=== PATIENT | female | born 1985 | race Caucasian/White ===

== ENCOUNTER 2022-01-20 11:05 | Inpatient (IN) ==
[2022-01-20] MEDS ORDERED: DINOPROSTONE 10 MG INSERT PV ONE (22:54)
[2022-01-20] MEDS ORDERED: OXYTOCIN 30 UNITS/500 ML BAG IV PRN (22:54)
[2022-01-20 23:16] LABS: Hematocrit (blood only) 36.5 % (37-47); Hemoglobin 13.2 g/dL (12.0-16.0); Mean Corpuscular Hgb Conc 36.2 g/dL (32-36); Mean Corpuscular Volume 91.3 fL (80-100); Mean Platelet Volume 10.8 fL (7.4-10.4); Platelet Count 200 K/uL (130-400); RDW Coefficient of Variation 12.9 % (11.5-14.5); RDW Standard Deviation 43.2 fL (36.4-46.3); White Blood Count 14.45 K/uL (4.8-10.8)
--- NOTE | 2022-01-21 02:53 | Obstetrical Progress Note ---
Date of Service January 21, 2022 Assessment & Plan (1) IUGR (intrauterine growth restriction): Plan: Induction for severe IUGR FHR; CAT1 Ctx; Mild and irregular VE; 1-2/50/-3 Plan Cervidil Admission and Anticipated Discharge Date Admission Date: January 20, 2022 Results & Data ([facility]) Vital Signs (Past 12 Hours) Vital Signs Temp Pulse Resp BP 01/21/22 02:19 36.5 C 57 L 18 118/73 01/20/22 22:15 36.6 C 77 16 137/85
[2022-01-21] MEDS ORDERED: miSOPROStoL 50 MCG TAB PO ONE (04:24)
--- NOTE | 2022-01-21 09:11 | Obstetrical Progress Note ---
Date of Service January 21, 2022 Physical Exam Genitourinary Manual OB Exam: + cervical dilation fingertip, + cervical effacement 50% and + station high OB Exam Monitor Tracing: + external FHT monitor used, + external uterine monitor used, + category I and + normal FHT variability Results & Data ([facility]) Vital Signs (Past 12 Hours) Vital Signs Temp Pulse Resp BP 01/21/22 08:30 20 01/21/22 07:30 36.6 C 20 01/21/22 07:25 58 L 132/61 01/21/22 02:19 36.5 C 57 L 18 118/73 01/20/22 22:15 36.6 C 77 16 137/85
[2022-01-21] MEDS: LACTATED RINGER'S 1,000 ML IV PRN (09:14)
[2022-01-21] MEDS ORDERED: Nursing to Pharmacy Communication SCH (10:45)
[2022-01-21] MEDS: miSOPROStoL 50 MCG TAB PO SCH ×3 (10:55→20:11)
[2022-01-21] MEDS ORDERED: miSOPROStoL 50 MCG TAB PO SCH (12:00)
[2022-01-22] MEDS: miSOPROStoL 50 MCG TAB PO SCH ×2 (02:44→11:45)
[2022-01-22] MEDS ORDERED: OXYTOCIN 30 UNITS/500 ML BAG IV PRN (07:20)
[2022-01-22 08:26] LABS: Basophils # (auto) 0.02 K/uL (0-0.2); Basophils % (auto) 0.1 %; Eosinophils % (auto) 0.7 %; Hematocrit (blood only) 35.1 % (37-47); Hemoglobin 12.5 g/dL (12.0-16.0); Immature Granulocytes # (auto) 0.08 K/uL (0.00-0.02); Immature Granulocytes % (auto) 0.6 %; Lymphocytes # (auto) 2.03 K/uL (1.2-3.4); Lymphocytes % (auto) 15.2 %; Mean Corpuscular Hemoglobin 32.7 pg (25-34); Mean Corpuscular Hgb Conc 35.6 g/dL (32-36); Mean Corpuscular Volume 91.9 fL (80-100); Mean Platelet Volume 10.9 fL (7.4-10.4); Monocytes % (auto) 8.2 %; Neutrophils # (auto) 10.06 K/uL (1.4-6.5); Neutrophils % (auto) 75.2 %; Platelet Count 183 K/uL (130-400); RDW Coefficient of Variation 12.9 % (11.5-14.5); RDW Standard Deviation 43.5 fL (36.4-46.3); Red Blood Count 3.82 M/uL (4.2-5.4); White Blood Count 13.39 K/uL (4.8-10.8)
--- NOTE | 2022-01-22 08:49 | History & Physical Report ---
Date of Service January 22, 2022 Assessment & Plan (1) IUGR (intrauterine growth restriction): Plan: 36-year-old -0-1-0 at 37 weeks and 5 days of gestation admitted on January 20 for IUGR, induction of labor recommended by [facility], Vital signs stable afebrile, Heart rate reassuring, GBS positive, S/p prostaglandin cervical ripening with no response, Discussed other options as intravaginal Cervidil or Henning balloon mechanical dilatation with oxytocin, After discussion decided for Henning balloon and low-dose oxytocin per protocol And to start penicillin for GBS, breakfast and then speculum exam for further balloon insertion, All questions were answered. (2) Tobacco smoking affecting : Admission and Anticipated Discharge Date Admission Date: January 20, 2022 History of Present Illness Primary Care Provider: Isauro Bolivar MD Patient is a 36-year-old -0-1-0 at 37 weeks and 1 day gestation who was admitted on January 20 for induction recommended by [facility] due to IUGR. Patient has received 6 doses of p.o. Cytotec but has not went into labor yet. She feels irregular mild contractions, denies leakage of fluid or vaginal bleeding. She reports good movements. Her has been complicated by, 1. Smoker, smokes half pack of cigarettes per day, 2. AMA, she had NIPT which had low risk and ultrasounds by [facility] 3. 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 Review of Systems as per Subjective / HPI Physical Exam Constitutional: WD/WN, vitals as above well developed and well nourished Comfortable , not in any distress Genitourinary: normal external appearance OB Exam Abdomen: + vertex Manual OB Exam: + cervical dilation fingertip, + cervical effacement 50% and + station -2 OB Exam Monitor Tracing: + external uterine monitor used and + category I Results & Data ([facility]) Vital Signs (Past 12 Hours) Vital Signs Temp Pulse Resp BP 01/22/22 06:23 56 L 122/64 01/22/22 06:22 36.7 C 16 01/22/22 02:20 53 L 124/61 01/21/22 23:56 54 L 123/74 01/21/22 23:55 36.6 C 18 01/21/22 22:12 58 L 123/66 01/21/22 22:10 36.4 C L 20 Laboratory Results Lab Results 01/20/22 01/21/22 01/22/22 Range/Units 23:02 07:53 08:04 WBC 14.45 H 13.39 H (4.8-10.8) K/uL RBC 4.00 L 3.82 L (4.2-5.4) M/uL Hgb 13.2 12.5 (12.0-16.0) g/dL Hct 36.5 L 35.1 L (37-47) % MCV 91.3 91.9 (80-100) fL MCH 33.0 32.7 (25-34) pg MCHC 36.2 H 35.6 (32-36) g/dL RDW Std Deviation 43.2 43.5 (36.4-46.3) fL RDW Coeff of Bi 12.9 12.9 (11.5-14.5) % Plt Count 200 183 (130-400) K/uL MPV 10.8 H 10.9 H (7.4-10.4) fL Immature Gran % (Auto) 0.6 % Neut % (Auto) 75.2 % Lymph % (Auto) 15.2 % [place] % (Auto) 8.2 % Eos % (Auto) 0.7 % Baso % (Auto) 0.1 % Neut # (Auto) 10.06 H (1.4-6.5) K/uL Lymph # (Auto) 2.03 (1.2-3.4) K/uL [place] # (Auto) 1.10 H (0.11-0.59) K/uL Eos # (Auto) 0.10 (0-0.5) K/uL Baso # (Auto) 0.02 (0-0.2) K/uL Immature Gran # (Auto) 0.08 H (0.00-0.02) K/uL SARS-CoV-2, RNA, NAAT NEGATIVE (NEGATIVE) Code Status & VTE Plan VTE Prophylaxis Plan VTE Prophylaxis will be ordered: No
[2022-01-22] MEDS ORDERED: BUTORPHANOL TARTRATE 1 MG/ML VIAL IV PRN (09:12)
[2022-01-22] MEDS ORDERED: FLUCONAZOLE 50 MG TAB PO ONE (09:13)
[2022-01-22] MEDS ORDERED: PENICILLIN G POTASSIUM 6 MU in DEXTROSE 5% 250 ML IV ONE (09:15)
--- NOTE | 2022-01-22 09:26 | Obstetrical Progress Note ---
Date of Service January 22, 2022 Assessment & Plan Admission and Anticipated Discharge Date Admission Date: January 20, 2022 Subjective Speculum was placed in the vagina, cervix is visualized and cleaned with Betadin e x2. Henning catheter tip was inserted into the cervical os and its balloon was inflated with 35 mL of sterile water. Mild traction was applied and attached to her medial upper thigh. Patient tolerated the procedure well. heart rate was category 1. Plan to augment contractions with low-dose Pitocin and continue to monitor. Results & Data ([facility]) Vital Signs (Past 12 Hours) Vital Signs Temp Pulse Resp BP 01/22/22 06:23 56 L 122/64 01/22/22 06:22 36.7 C 16 01/22/22 02:20 53 L 124/61 01/21/22 23:56 54 L 123/74 01/21/22 23:55 36.6 C 18 01/21/22 22:12 58 L 123/66 01/21/22 22:10 36.4 C L 20
[2022-01-22] MEDS ORDERED: PENICILLIN G POTASSIUM 3 MU in DEXTROSE 5% 100 ML IV ONE (13:00)
[2022-01-22] MEDS: LACTATED RINGER'S 1,000 ML IV PRN ×2 (13:33→22:06)
[2022-01-22] MEDS ORDERED: ePHEDrine sulfate 50 MG/ML AMP ONE (15:51)
[2022-01-22] MEDS ORDERED: fentaNYL citrate 100 MCG/2 ML VIAL ONE (15:51)
[2022-01-22] MEDS ORDERED: BUPIVACAINE 0.25% 30 ML VIAL ONE (15:51)
[2022-01-22] MEDS ORDERED: SODIUM CHLORIDE 0.9% INJ 10 ML VIAL ONE (15:51)
[2022-01-22] MEDS ORDERED: fentaNYL 2MCG/ML ROPIVACAINE 1.25MG/ML 100 ML BAG EPI ONE (15:52)
--- NOTE | 2022-01-22 15:53 | Obstetrical Progress Note ---
Date of Service January 22, 2022 Assessment & Plan Admission and Anticipated Discharge Date Admission Date: January 20, 2022 Subjective Patient is reevaluated. Patient felt urge to urinate, the Henning balloon was fou nd to be in the vagina and removed and she leaked urine? Amniotic fluid? She used Bactrim and emptied 1000 mL of urine mixed with amniotic fluid, Vaginal exam is repeated, cervix is 4 cm dilated, 40% effaced, head at -2 station well applied to the cervix, no amniotic membranes were felt, nitrazine is positive on perineum. heart rate reassuring, Pitocin is at 8 mIU/min, She is more painful now and desires epidural for pain. Plan to continue to monitor closely and epidural for pain. Results & Data ([facility]) Vital Signs (Past 12 Hours) Vital Signs Temp Pulse Resp BP Pulse Ox 01/22/22 15:29 72 99 01/22/22 15:24 61 99 01/22/22 15:19 54 L 98 01/22/22 15:14 55 L 98 01/22/22 15:09 57 L 97 01/22/22 15:04 56 L 98 01/22/22 14:59 53 L 97 01/22/22 14:54 60 99 01/22/22 14:49 54 L 97 01/22/22 14:44 53 L 97 01/22/22 14:39 51 L 98 01/22/22 14:34 50 L 97 01/22/22 14:33 50 L 111/60 01/22/22 14:29 51 L 97 01/22/22 14:24 55 L 98 01/22/22 14:19 52 L 98 01/22/22 14:14 52 L 100 01/22/22 14:09 63 100 01/22/22 14:08 63 122/68 01/22/22 13:35 50 L 140/75 01/22/22 12:32 52 L 151/82 H 01/22/22 10:16 54 L 149/75 H 01/22/22 09:41 56 L 129/72 01/22/22 06:23 56 L 122/64 01/22/22 06:22 36.7 C 16
[2022-01-22] MEDS ORDERED: NALOXONE HCL 1 MG in SODIUM CHLORIDE 0.9% 1000ML 1,000 ML IV PRN (16:18)
[2022-01-22] MEDS ORDERED: ePHEDrine sulfate 50 MG/ML AMP IV PRN (16:18)
[2022-01-22] MEDS ORDERED: fentaNYL 2MCG/ML ROPIVACAINE 1.25MG/ML 100 ML BAG EPI PRN (16:18)
[2022-01-22] MEDS ORDERED: NALOXONE HCL 0.4 MG/1 ML VIAL/CARP IV PRN (16:18)
[2022-01-22] MEDS ORDERED: diphenhydrAMINE 50 MG/ML VIAL IV PRN (16:18)
[2022-01-22] MEDS ORDERED: NALBUPHINE HCL INJ 10 MG/ML AMP IV PRN (16:18)
[2022-01-22] MEDS ORDERED: ONDANSETRON INJ 2 MG/ML 2 ML VIAL IV PRN (16:18)
--- NOTE | 2022-01-22 16:20 | Anesthesiology Consultation ---
Date of Service January 22, 2022 Assessment & Plan (1) Encounter for pre-operative examination: Chart Review Chart Review: Patient NOT seen in Pre Admission Testing and Acceptable Risk for Labor Epidural Consults Requested none ASA ASA2 Proposed Anesthesia Anesthesia Type: Labor Epidural Risk / Benefits Reviewed With: PT / POA / Parent / Guardian, Accepts Plan and Informed Consent Obtained History Height/Weight Height: 5 ft 6 in Weight: 86.183 kg Allergies Allergy/AdvReac Type Severity Reaction Status Date / Time strawberry Allergy Unknown Hives Verified 01/20/22 22:30 Sulfa (Sulfonamide Allergy Unknown hives Verified 06/01/15 12:36 Antibiotics) Medications Home Medications Medication Instructions Recorded Confirmed Last Taken prenat.vits,darshan,[id number] 1 tab PO DAILY 01/20/22 01/20/22 01/20/22 Active Medications Generic Name Dose Route Start Last Admin Trade Name Freq PRN Reason Stop Dose Admin Butorphanol Tartrate 1 mg 01/22/22 09:12 01/22/22 11:58 Butorphanol Tartrate 1 Mg/Ml Vial IV 02/21/22 09:11 1 mg Q3HWA PRN Administration Pain Lactated Ringer's 1,000 mls @ 125 mls/hr 01/20/22 22:54 01/22/22 14:30 Lr IV 01/22/22 22:53 125 mls/hr .Q8H PRN Infusion L&D Protocol Protocol Oxytocin 30 units in 500 mls @ 8 mls/hr 01/22/22 07:20 01/22/22 14:05 Pitocin IV 01/24/22 07:19 0.48 units/hr .Q24H PRN 8 mls/hr Labor Induction/Augmentation Titration Protocol 0.48 UNITS/HR Misoprostol 50 mcg 01/21/22 11:00 01/22/22 11:45 Misoprostol 50 Mcg Tab PO 02/20/22 10:59 Not Given Q4H MARK Exercise / Class Metabolic Activity II 4-5 Yardwork/Stairs/Walk up hill Past Surgical History Surgical History [facility] teeth extracted Past Anesthesia History No Hx of Anesthesia Complications and No Family Hx of Anesthesia Complications History of PONV No Hx of PONV and No Hx of Motion Sickness Social History Smoking Status: Current every day smoker tobacco type: cigarettes Smoking cigarettes per day: 10 Hx Alcohol Use: No Hx Substance Use: No Physical Exam Vital Signs Last Vital Signs Temp 36.7 C 01/22/22 06:22 Pulse 59 L 01/22/22 16:16 Resp 16 01/22/22 06:22 BP 138/81 01/22/22 15:59 Pulse Ox 98 01/22/22 16:16 Testing Laboratory Results 01/22/22 08:04
[2022-01-22] MEDS: PENICILLIN G POTASSIUM 3 MU in DEXTROSE 5% 100 ML IV PRN ×2 (17:54→22:44)
--- NOTE | 2022-01-22 17:55 | Obstetrical Progress Note ---
Date of Service January 22, 2022 Assessment & Plan Admission and Anticipated Discharge Date Admission Date: January 20, 2022 Subjective Patient is reevaluated. FHR had prolonged deceleration to 80-90's for about 5 min and recovered on knee- chest position. 140-150's for the last 10 minutes. Now on her back, VE; cervix 5 cm/ 70%, -2, coned head with caput Pitocin is off, IVF bolus is running Henning catheter is placed Discussed possible delivery if fetus does not tolerate labor Continue to monitor closely Results & Data ([facility]) Vital Signs (Past 12 Hours) Vital Signs Temp Pulse Resp BP Pulse Ox 01/22/22 17:51 54 L 99 01/22/22 17:46 86 99 01/22/22 17:45 82 88 L 01/22/22 17:44 66 129/69 01/22/22 17:41 65 99 01/22/22 17:39 61 142/72 H 01/22/22 17:36 62 99 01/22/22 17:31 58 L 98 01/22/22 17:30 58 L 144/78 H 01/22/22 17:26 58 L 100 01/22/22 17:24 56 L 134/74 01/22/22 17:21 69 100 01/22/22 17:19 58 L 143/67 H 01/22/22 17:16 56 L 98 01/22/22 17:14 57 L 139/65 01/22/22 17:11 57 L 98 01/22/22 17:09 59 L 143/86 H 01/22/22 17:06 54 L 100 01/22/22 17:04 55 L 138/79 01/22/22 17:01 54 L 98 01/22/22 16:56 53 L 136/77 99 01/22/22 16:54 54 L 143/76 H 01/22/22 16:53 60 142/85 H 01/22/22 16:51 55 L 98 01/22/22 16:50 54 L 137/67 01/22/22 16:48 54 L 146/72 H 01/22/22 16:46 60 147/76 H 98 01/22/22 16:44 61 141/73 H 01/22/22 16:43 56 L 142/80 H 01/22/22 16:41 58 L 97 01/22/22 16:36 64 98 01/22/22 16:35 61 143/84 H 01/22/22 16:34 60 147/87 H 01/22/22 16:31 73 100 01/22/22 16:26 65 167/96 H 95 01/22/22 16:21 84 99 01/22/22 16:16 59 L 98 01/22/22 16:11 58 L 99 01/22/22 16:06 71 99 01/22/22 16:01 65 98 01/22/22 15:59 60 138/81 01/22/22 15:29 72 99 01/22/22 15:24 61 99 01/22/22 15:19 54 L 98 01/22/22 15:14 55 L 98 01/22/22 15:09 57 L 97 01/22/22 15:04 56 L 98 01/22/22 14:59 53 L 97 01/22/22 14:54 60 99 01/22/22 14:49 54 L 97 01/22/22 14:44 53 L 97 01/22/22 14:39 51 L 98 01/22/22 14:34 50 L 97 01/22/22 14:33 50 L 111/60 01/22/22 14:29 51 L 97 01/22/22 14:24 55 L 98 01/22/22 14:19 52 L 98 01/22/22 14:14 52 L 100 01/22/22 14:09 63 100 01/22/22 14:08 63 122/68 01/22/22 13:35 50 L 140/75 01/22/22 12:32 52 L 151/82 H 01/22/22 10:16 54 L 149/75 H 01/22/22 09:41 56 L 129/72 01/22/22 06:23 56 L 122/64 01/22/22 06:22 36.7 C 16
--- NOTE | 2022-01-22 22:41 | Obstetrical Progress Note ---
Date of Service January 22, 2022 Assessment & Plan Admission and Anticipated Discharge Date Admission Date: January 20, 2022 Subjective heart rate had been category 1 since the last exam when the Pitocin was tu rned off. Nursing team was unable to start until 9 PM due to other emergencies going on. Vaginal exam 5 cm, 70%, -1 with a cone head which is very applied to the cervix. Pitocin is just increased to 6 milliunits/min Continue to monitor closely and augment contractions with Pitocin. Results & Data ([facility]) Vital Signs (Past 12 Hours) Vital Signs Temp Pulse Resp BP Pulse Ox Pulse Ox 01/22/22 22:36 55 L 98 01/22/22 22:31 59 L 100 01/22/22 22:29 49 L 124/76 01/22/22 22:26 50 L 98 01/22/22 22:21 51 L 100 01/22/22 22:16 56 L 100 01/22/22 22:11 51 L 99 01/22/22 22:06 55 L 97 01/22/22 22:01 55 L 100 01/22/22 21:56 57 L 100 01/22/22 21:55 50 L 128/74 01/22/22 21:51 50 L 98 01/22/22 21:46 57 L 98 01/22/22 21:41 56 L 97 01/22/22 21:40 51 L 122/70 01/22/22 21:36 51 L 18 118/69 98 01/22/22 21:31 51 L 97 01/22/22 21:26 50 L 118/69 98 01/22/22 21:21 52 L 97 01/22/22 21:16 52 L 99 01/22/22 21:11 51 L 99 01/22/22 21:10 48 L 122/71 01/22/22 21:06 57 L 99 01/22/22 21:01 50 L 100 01/22/22 20:56 53 L 99 01/22/22 20:55 51 L 127/69 01/22/22 20:51 56 L 100 01/22/22 20:46 56 L 100 01/22/22 20:45 18 01/22/22 20:41 54 L 140/76 98 01/22/22 20:36 64 98 01/22/22 20:35 62 93 01/22/22 20:31 52 L 100 01/22/22 20:30 53 L 20 126/69 100 01/22/22 20:26 49 L 99 01/22/22 20:25 48 L 126/69 01/22/22 20:21 52 L 99 01/22/22 20:16 49 L 98 01/22/22 20:11 49 L 131/70 99 01/22/22 20:06 49 L 99 01/22/22 20:01 58 L 99 01/22/22 19:56 52 L 98 01/22/22 19:55 48 L 132/69 01/22/22 19:51 55 L 99 01/22/22 19:46 52 L 99 01/22/22 19:41 54 L 140/73 98 01/22/22 19:36 52 L 98 01/22/22 19:31 58 L 99 01/22/22 19:29 36.7 C 56 L 20 132/70 98 98 01/22/22 19:26 56 L 98 01/22/22 19:23 52 L 132/70 01/22/22 19:21 56 L 99 01/22/22 19:18 53 L 133/70 01/22/22 19:16 59 L 97 01/22/22 19:14 56 L 131/72 01/22/22 19:11 52 L 97 01/22/22 19:08 54 L 131/65 01/22/22 19:06 52 L 97 01/22/22 19:04 51 L 136/72 01/22/22 19:01 53 L 98 01/22/22 19:00 18 01/22/22 18:58 51 L 130/73 01/22/22 18:56 58 L 98 01/22/22 18:53 51 L 130/74 01/22/22 18:51 53 L 99 01/22/22 18:49 52 L 127/72 01/22/22 18:46 49 L 98 01/22/22 18:43 50 L 131/71 01/22/22 18:41 56 L 98 01/22/22 18:38 53 L 135/73 01/22/22 18:36 53 L 99 01/22/22 18:33 54 L 136/75 01/22/22 18:31 57 L 99 01/22/22 18:28 53 L 140/76 01/22/22 18:26 51 L 99 01/22/22 18:23 55 L 140/79 01/22/22 18:21 54 L 99 01/22/22 18:20 52 L 138/77 01/22/22 18:16 52 L 99 01/22/22 18:13 52 L 140/74 01/22/22 18:11 58 L 99 01/22/22 18:10 51 L 146/72 H 01/22/22 18:06 51 L 99 01/22/22 18:03 54 L 139/81 01/22/22 18:01 58 L 98 01/22/22 17:58 54 L 133/75 01/22/22 17:56 56 L 100 01/22/22 17:54 50 L 129/73 01/22/22 17:51 54 L 99 01/22/22 17:46 86 99 01/22/22 17:45 82 88 L 01/22/22 17:44 66 129/69 01/22/22 17:41 65 99 01/22/22 17:39 61 142/72 H 01/22/22 17:36 62 99 01/22/22 17:31 58 L 98 01/22/22 17:30 58 L 144/78 H 01/22/22 17:26 58 L 100 01/22/22 17:24 56 L 134/74 01/22/22 17:21 69 100 01/22/22 17:19 58 L 143/67 H 01/22/22 17:16 56 L 98 01/22/22 17:14 57 L 139/65 01/22/22 17:11 57 L 98 01/22/22 17:09 59 L 143/86 H 01/22/22 17:06 54 L 100 01/22/22 17:04 55 L 138/79 01/22/22 17:01 54 L 98 01/22/22 16:56 53 L 136/77 99 01/22/22 16:54 54 L 143/76 H 01/22/22 16:53 60 142/85 H 01/22/22 16:51 55 L 98 01/22/22 16:50 54 L 137/67 01/22/22 16:48 54 L 146/72 H 01/22/22 16:46 60 147/76 H 98 01/22/22 16:44 61 141/73 H 01/22/22 16:43 56 L 142/80 H 01/22/22 16:41 58 L 97 01/22/22 16:36 64 98 01/22/22 16:35 61 143/84 H 01/22/22 16:34 60 147/87 H 01/22/22 16:31 73 100 01/22/22 16:26 65 167/96 H 95 01/22/22 16:21 84 99 01/22/22 16:16 59 L 98 01/22/22 16:11 58 L 99 01/22/22 16:06 71 99 01/22/22 16:01 65 98 01/22/22 15:59 60 138/81 01/22/22 15:29 72 99 01/22/22 15:24 61 99 01/22/22 15:19 54 L 98 01/22/22 15:14 55 L 98 01/22/22 15:09 57 L 97 01/22/22 15:04 56 L 98 01/22/22 14:59 53 L 97 01/22/22 14:54 60 99 01/22/22 14:49 54 L 97 01/22/22 14:44 53 L 97 01/22/22 14:39 51 L 98 01/22/22 14:34 50 L 97 01/22/22 14:33 50 L 111/60 01/22/22 14:29 51 L 97 01/22/22 14:24 55 L 98 01/22/22 14:19 52 L 98 01/22/22 14:14 52 L 100 01/22/22 14:09 63 100 01/22/22 14:08 63 122/68 01/22/22 13:35 50 L 140/75 01/22/22 12:32 52 L 151/82 H
[2022-01-23] MEDS ORDERED: LACTATED RINGER'S 1,000 ML IV SCH ×3 (00:15→02:45)
--- NOTE | 2022-01-23 00:15 | Obstetrical Progress Note ---
Date of Service January 23, 2022 Assessment & Plan Admission and Anticipated Discharge Date Admission Date: January 20, 2022 Subjective FHR has another prolonged deceleration and recovery Pitocin was shut off again and recovered to 120's with decreased variability VE; Cervix is unchanged Discussed the findings and recommended delivery for intolerance to labor, IUGR, Arrest of dilatation Patient understands the risks of C section as a major surgery, bleeding , infection, injury to surrounding organs like bowels, bladder, ureters, adhesions, scarring, wound infection, blood cloths in legs/ lungs, longer recovery She signed an informed consent. Results & Data ([facility]) Vital Signs (Past 12 Hours) Vital Signs Temp Pulse Resp BP Pulse Ox Pulse Ox 01/23/22 00:11 58 L 98 01/23/22 00:06 72 99 01/23/22 00:01 71 121/75 96 01/22/22 23:56 50 L 97 01/22/22 23:51 54 L 98 01/22/22 23:46 82 100 01/22/22 23:41 53 L 98 01/22/22 23:36 57 L 98 01/22/22 23:31 58 L 98 01/22/22 23:29 52 L 120/64 01/22/22 23:28 36.7 C 16 01/22/22 23:26 53 L 97 01/22/22 23:21 51 L 97 01/22/22 23:16 53 L 97 01/22/22 23:11 54 L 98 01/22/22 23:08 49 L 106/57 L 01/22/22 23:06 50 L 96 01/22/22 23:01 50 L 97 01/22/22 22:56 48 L 98 01/22/22 22:51 56 L 97 01/22/22 22:49 52 L 116/58 L 01/22/22 22:46 54 L 97 01/22/22 22:41 60 98 01/22/22 22:36 55 L 98 01/22/22 22:31 59 L 100 01/22/22 22:29 49 L 124/76 01/22/22 22:26 50 L 98 01/22/22 22:21 51 L 100 01/22/22 22:16 56 L 100 01/22/22 22:11 51 L 99 01/22/22 22:06 55 L 97 01/22/22 22:01 55 L 100 01/22/22 21:56 57 L 100 01/22/22 21:55 50 L 128/74 01/22/22 21:51 50 L 98 01/22/22 21:46 57 L 98 01/22/22 21:41 56 L 97 01/22/22 21:40 51 L 122/70 01/22/22 21:36 51 L 18 118/69 98 01/22/22 21:31 51 L 97 01/22/22 21:26 50 L 118/69 98 01/22/22 21:21 52 L 97 01/22/22 21:16 52 L 99 01/22/22 21:11 51 L 99 01/22/22 21:10 48 L 122/71 01/22/22 21:06 57 L 99 01/22/22 21:01 50 L 100 01/22/22 20:56 53 L 99 01/22/22 20:55 51 L 127/69 01/22/22 20:51 56 L 100 01/22/22 20:46 56 L 100 01/22/22 20:45 18 01/22/22 20:41 54 L 140/76 98 01/22/22 20:36 64 98 01/22/22 20:35 62 93 01/22/22 20:31 52 L 100 01/22/22 20:30 53 L 20 126/69 100 01/22/22 20:26 49 L 99 01/22/22 20:25 48 L 126/69 01/22/22 20:21 52 L 99 01/22/22 20:16 49 L 98 01/22/22 20:11 49 L 131/70 99 01/22/22 20:06 49 L 99 01/22/22 20:01 58 L 99 01/22/22 19:56 52 L 98 01/22/22 19:55 48 L 132/69 01/22/22 19:51 55 L 99 01/22/22 19:46 52 L 99 01/22/22 19:41 54 L 140/73 98 01/22/22 19:36 52 L 98 01/22/22 19:31 58 L 99 01/22/22 19:29 36.7 C 56 L 20 132/70 98 98 01/22/22 19:26 56 L 98 01/22/22 19:23 52 L 132/70 01/22/22 19:21 56 L 99 01/22/22 19:18 53 L 133/70 01/22/22 19:16 59 L 97 01/22/22 19:14 56 L 131/72 01/22/22 19:11 52 L 97 01/22/22 19:08 54 L 131/65 01/22/22 19:06 52 L 97 01/22/22 19:04 51 L 136/72 01/22/22 19:01 53 L 98 01/22/22 19:00 18 01/22/22 18:58 51 L 130/73 01/22/22 18:56 58 L 98 01/22/22 18:53 51 L 130/74 01/22/22 18:51 53 L 99 01/22/22 18:49 52 L 127/72 01/22/22 18:46 49 L 98 01/22/22 18:43 50 L 131/71 01/22/22 18:41 56 L 98 01/22/22 18:38 53 L 135/73 01/22/22 18:36 53 L 99 01/22/22 18:33 54 L 136/75 01/22/22 18:31 57 L 99 01/22/22 18:28 53 L 140/76 01/22/22 18:26 51 L 99 01/22/22 18:23 55 L 140/79 01/22/22 18:21 54 L 99 01/22/22 18:20 52 L 138/77 01/22/22 18:16 52 L 99 01/22/22 18:13 52 L 140/74 01/22/22 18:11 58 L 99 01/22/22 18:10 51 L 146/72 H 01/22/22 18:06 51 L 99 01/22/22 18:03 54 L 139/81 01/22/22 18:01 58 L 98 01/22/22 17:58 54 L 133/75 01/22/22 17:56 56 L 100 01/22/22 17:54 50 L 129/73 01/22/22 17:51 54 L 99 01/22/22 17:46 86 99 01/22/22 17:45 82 88 L 01/22/22 17:44 66 129/69 01/22/22 17:41 65 99 01/22/22 17:39 61 142/72 H 01/22/22 17:36 62 99 01/22/22 17:31 58 L 98 01/22/22 17:30 58 L 144/78 H 01/22/22 17:26 58 L 100 01/22/22 17:24 56 L 134/74 01/22/22 17:21 69 100 01/22/22 17:19 58 L 143/67 H 01/22/22 17:16 56 L 98 01/22/22 17:14 57 L 139/65 01/22/22 17:11 57 L 98 01/22/22 17:09 59 L 143/86 H 01/22/22 17:06 54 L 100 01/22/22 17:04 55 L 138/79 01/22/22 17:01 54 L 98 01/22/22 16:56 53 L 136/77 99 01/22/22 16:54 54 L 143/76 H 01/22/22 16:53 60 142/85 H 01/22/22 16:51 55 L 98 01/22/22 16:50 54 L 137/67 01/22/22 16:48 54 L 146/72 H 01/22/22 16:46 60 147/76 H 98 01/22/22 16:44 61 141/73 H 01/22/22 16:43 56 L 142/80 H 01/22/22 16:41 58 L 97 01/22/22 16:36 64 98 01/22/22 16:35 61 143/84 H 01/22/22 16:34 60 147/87 H 01/22/22 16:31 73 100 01/22/22 16:26 65 167/96 H 95 01/22/22 16:21 84 99 01/22/22 16:16 59 L 98 01/22/22 16:11 58 L 99 01/22/22 16:06 71 99 01/22/22 16:01 65 98 01/22/22 15:59 60 138/81 01/22/22 15:29 72 99 01/22/22 15:24 61 99 01/22/22 15:19 54 L 98 01/22/22 15:14 55 L 98 01/22/22 15:09 57 L 97 01/22/22 15:04 56 L 98 01/22/22 14:59 53 L 97 01/22/22 14:54 60 99 01/22/22 14:49 54 L 97 01/22/22 14:44 53 L 97 01/22/22 14:39 51 L 98 01/22/22 14:34 50 L 97 01/22/22 14:33 50 L 111/60 01/22/22 14:29 51 L 97 01/22/22 14:24 55 L 98 01/22/22 14:19 52 L 98 01/22/22 14:14 52 L 100 01/22/22 14:09 63 100 01/22/22 14:08 63 122/68 01/22/22 13:35 50 L 140/75 01/22/22 12:32 52 L 151/82 H
[2022-01-23] MEDS ORDERED: AZITHROMYCIN 500 MG in DEXTROSE 5% 250 ML IV STA (00:25)
[2022-01-23] MEDS ORDERED: CITRIC ACID/SODIUM CITRATE 15 ML UDC PO SCH (00:30)
[2022-01-23] MEDS ORDERED: ceFAZolin 2000MG 2,000 MG/15 ML SYR IV ONE (00:30)
[2022-01-23] MEDS ORDERED: OXYTOCIN 10 UNITS/ML 10ML VIAL ONE (00:33)
[2022-01-23] MEDS ORDERED: MoRPHine SULFATE PF 1 MG/ML 10 ML AMP/VIAL ONE (00:34)
[2022-01-23] MEDS ORDERED: KETAMINE 50 MG/5 ML SYRINGE ONE (01:18)
[2022-01-23] MEDS ORDERED: MIDAZOLAM HCL 1 MG/ML 2ML VIAL ONE (01:18)
[2022-01-23] MEDS ORDERED: NALBUPHINE HCL INJ 10 MG/ML AMP IV PRN (01:28)
[2022-01-23] MEDS ORDERED: MoRPHine SULFATE PF 1 MG/ML 10 ML AMP/VIAL EPI ONE (01:28)
[2022-01-23] MEDS ORDERED: MoRPHine SULFATE 2 MG/ML CARP IV PRN (01:28)
[2022-01-23] MEDS ORDERED: NALOXONE HCL 1 MG in SODIUM CHLORIDE 0.9% 1000ML 1,000 ML IV PRN (01:28)
[2022-01-23] MEDS ORDERED: NALOXONE HCL 0.4 MG/1 ML VIAL/CARP IV PRN (01:28)
[2022-01-23] MEDS ORDERED: ONDANSETRON INJ 2 MG/ML 2 ML VIAL IV PRN ×2 (01:28→19:28)
[2022-01-23] MEDS ORDERED: LACTATED RINGER'S 500 ML IV PRN (01:28)
[2022-01-23] MEDS ORDERED: NALOXONE HCL 0.08 MG in SYRINGE 1.8 ML IV PRN (01:28)
[2022-01-23] MEDS ORDERED: diphenhydrAMINE 50 MG/ML VIAL IV PRN ×2 (01:28→19:28)
[2022-01-23] MEDS ORDERED: ePHEDrine sulfate 50 MG/ML AMP IV PRN (01:28)
[2022-01-23] MEDS ORDERED: DC INTRASPINAL MORPHINE SCH (01:30)
[2022-01-23] MEDS ORDERED: NO NARCOTICS OR SEDATIVES SCH (01:30)
[2022-01-23] MEDS ORDERED: SODIUM CHLORIDE 0.9% 1000ML 1,000 ML IV SCH (01:30)
[2022-01-23] MEDS ORDERED: PHENYLEPHRINE HCL 10 MG/ML VIAL ONE (02:04)
[2022-01-23] MEDS ORDERED: LIDOCAINE 2%/EPINEPHRINE 1:200,000 20 ML SDV ONE (02:04)
--- NOTE | 2022-01-23 02:32 | Anesthesia Procedure Note ---
Date of Service January 23, 2022 Anesthesia Post Epidural Note Vital Signs Vital Signs: Temp Pulse Resp BP Pulse Ox 36.7 C 68 16 126/92 98 01/22/22 23:28 01/23/22 02:30 01/22/22 23:28 01/23/22 02:30 01/23/22 02:27 Pain Intensity Lower Medial Abdomen: Pain Intensity: 0 Notes Mental Status: alert / awake / arousable and participated in evaluation Patient Amnestic to Procedure: No Nausea / Vomiting: adequately controlled Pain: adequately controlled Airway Patency, RR, SpO2: stable & adequate BP & HR: stable & adequate Hydration State: stable & adequate Neuraxial Anesthesia: was administered and sensory block is resolving Anesthetic Complications: no major complications apparent and Pt Satisfied with anesthetic care Epidural: Removed without complications and With tip intact
--- NOTE | 2022-01-23 02:33 | Anesthesiology Progress Note ---
Date of Service January 23, 2022 Anesthesia Post Procedure Vital Signs Vital Signs: Temp Pulse Resp BP Pulse Ox Pulse Ox 01/23/22 02:30 68 126/92 01/23/22 02:27 79 98 01/23/22 02:24 141 H 114/78 01/23/22 02:22 78 99 01/23/22 00:56 74 99 01/23/22 00:51 59 L 98 01/23/22 00:46 63 98 01/23/22 00:41 62 98 01/23/22 00:36 66 99 01/23/22 00:31 67 99 01/23/22 00:30 70 139/80 01/23/22 00:26 73 97 01/23/22 00:21 62 98 01/23/22 00:16 78 99 01/23/22 00:11 58 L 98 01/23/22 00:06 72 99 01/23/22 00:01 71 121/75 96 01/22/22 23:56 50 L 97 01/22/22 23:51 54 L 98 01/22/22 23:46 82 100 01/22/22 23:41 53 L 98 01/22/22 23:36 57 L 98 01/22/22 23:31 58 L 98 01/22/22 23:29 52 L 120/64 01/22/22 23:28 36.7 C 16 01/22/22 23:26 53 L 97 01/22/22 23:21 51 L 97 01/22/22 23:16 53 L 97 01/22/22 23:11 54 L 98 01/22/22 23:08 49 L 106/57 L 01/22/22 23:06 50 L 96 01/22/22 23:01 50 L 97 01/22/22 22:56 48 L 98 01/22/22 22:51 56 L 97 01/22/22 22:49 52 L 116/58 L 01/22/22 22:46 54 L 97 01/22/22 22:41 60 98 01/22/22 22:36 55 L 98 01/22/22 22:31 59 L 100 01/22/22 22:29 49 L 124/76 01/22/22 22:26 50 L 98 01/22/22 22:21 51 L 100 01/22/22 22:16 56 L 100 01/22/22 22:11 51 L 99 01/22/22 22:06 55 L 97 01/22/22 22:01 55 L 100 01/22/22 21:56 57 L 100 01/22/22 21:55 50 L 128/74 01/22/22 21:51 50 L 98 01/22/22 21:46 57 L 98 01/22/22 21:41 56 L 97 01/22/22 21:40 51 L 122/70 01/22/22 21:36 51 L 18 118/69 98 01/22/22 21:31 51 L 97 01/22/22 21:26 50 L 118/69 98 01/22/22 21:21 52 L 97 01/22/22 21:16 52 L 99 01/22/22 21:11 51 L 99 01/22/22 21:10 48 L 122/71 01/22/22 21:06 57 L 99 01/22/22 21:01 50 L 100 01/22/22 20:56 53 L 99 01/22/22 20:55 51 L 127/69 01/22/22 20:51 56 L 100 01/22/22 20:46 56 L 100 01/22/22 20:45 18 01/22/22 20:41 54 L 140/76 98 01/22/22 20:36 64 98 01/22/22 20:35 62 93 01/22/22 20:31 52 L 100 01/22/22 20:30 53 L 20 126/69 100 01/22/22 20:26 49 L 99 01/22/22 20:25 48 L 126/69 01/22/22 20:21 52 L 99 01/22/22 20:16 49 L 98 01/22/22 20:11 49 L 131/70 99 01/22/22 20:06 49 L 99 01/22/22 20:01 58 L 99 01/22/22 19:56 52 L 98 01/22/22 19:55 48 L 132/69 01/22/22 19:51 55 L 99 01/22/22 19:46 52 L 99 01/22/22 19:41 54 L 140/73 98 01/22/22 19:36 52 L 98 01/22/22 19:31 58 L 99 01/22/22 19:29 36.7 C 56 L 20 132/70 98 98 01/22/22 19:26 56 L 98 01/22/22 19:23 52 L 132/70 01/22/22 19:21 56 L 99 01/22/22 19:18 53 L 133/70 01/22/22 19:16 59 L 97 01/22/22 19:14 56 L 131/72 01/22/22 19:11 52 L 97 01/22/22 19:08 54 L 131/65 01/22/22 19:06 52 L 97 01/22/22 19:04 51 L 136/72 01/22/22 19:01 53 L 98 01/22/22 19:00 18 01/22/22 18:58 51 L 130/73 01/22/22 18:56 58 L 98 01/22/22 18:53 51 L 130/74 01/22/22 18:51 53 L 99 01/22/22 18:49 52 L 127/72 01/22/22 18:46 49 L 98 01/22/22 18:43 50 L 131/71 01/22/22 18:41 56 L 98 01/22/22 18:38 53 L 135/73 01/22/22 18:36 53 L 99 01/22/22 18:33 54 L 136/75 01/22/22 18:31 57 L 99 01/22/22 18:28 53 L 140/76 01/22/22 18:26 51 L 99 01/22/22 18:23 55 L 140/79 01/22/22 18:21 54 L 99 01/22/22 18:20 52 L 138/77 01/22/22 18:16 52 L 99 01/22/22 18:13 52 L 140/74 01/22/22 18:11 58 L 99 01/22/22 18:10 51 L 146/72 H 01/22/22 18:06 51 L 99 01/22/22 18:03 54 L 139/81 01/22/22 18:01 58 L 98 01/22/22 17:58 54 L 133/75 01/22/22 17:56 56 L 100 01/22/22 17:54 50 L 129/73 01/22/22 17:51 54 L 99 01/22/22 17:46 86 99 01/22/22 17:45 82 88 L 01/22/22 17:44 66 129/69 01/22/22 17:41 65 99 01/22/22 17:39 61 142/72 H 01/22/22 17:36 62 99 01/22/22 17:31 58 L 98 01/22/22 17:30 58 L 144/78 H 01/22/22 17:26 58 L 100 01/22/22 17:24 56 L 134/74 01/22/22 17:21 69 100 01/22/22 17:19 58 L 143/67 H 01/22/22 17:16 56 L 98 01/22/22 17:14 57 L 139/65 01/22/22 17:11 57 L 98 01/22/22 17:09 59 L 143/86 H 01/22/22 17:06 54 L 100 01/22/22 17:04 55 L 138/79 01/22/22 17:01 54 L 98 01/22/22 16:56 53 L 136/77 99 01/22/22 16:54 54 L 143/76 H 01/22/22 16:53 60 142/85 H 01/22/22 16:51 55 L 98 01/22/22 16:50 54 L 137/67 01/22/22 16:48 54 L 146/72 H 01/22/22 16:46 60 147/76 H 98 01/22/22 16:44 61 141/73 H 01/22/22 16:43 56 L 142/80 H 01/22/22 16:41 58 L 97 01/22/22 16:36 64 98 01/22/22 16:35 61 143/84 H 01/22/22 16:34 60 147/87 H 01/22/22 16:31 73 100 01/22/22 16:26 65 167/96 H 95 01/22/22 16:21 84 99 01/22/22 16:16 59 L 98 01/22/22 16:11 58 L 99 01/22/22 16:06 71 99 01/22/22 16:01 65 98 01/22/22 15:59 60 138/81 01/22/22 15:29 72 99 01/22/22 15:24 61 99 01/22/22 15:19 54 L 98 01/22/22 15:14 55 L 98 01/22/22 15:09 57 L 97 01/22/22 15:04 56 L 98 01/22/22 14:59 53 L 97 01/22/22 14:54 60 99 01/22/22 14:49 54 L 97 01/22/22 14:44 53 L 97 01/22/22 14:39 51 L 98 01/22/22 14:34 50 L 97 01/22/22 14:33 50 L 111/60 01/22/22 14:29 51 L 97 01/22/22 14:24 55 L 98 01/22/22 14:19 52 L 98 01/22/22 14:14 52 L 100 01/22/22 14:09 63 100 01/22/22 14:08 63 122/68 01/22/22 13:35 50 L 140/75 01/22/22 12:32 52 L 151/82 H 01/22/22 10:16 54 L 149/75 H 01/22/22 09:41 56 L 129/72 01/22/22 06:23 56 L 122/64 01/22/22 06:22 36.7 C 16 Pain Intensity Lower Medial Abdomen: Pain Intensity: 0 Transfer of Care Handoff Completed per policy Notes Mental Status: alert / awake / arousable Patient Amnestic to Procedure: Yes Nausea / Vomiting: adequately controlled Pain: adequately controlled Airway Patency, RR, SpO2: stable & adequate BP & HR: stable & adequate Hydration State: stable & adequate Neuraxial Anesthesia: was administered and sensory block is resolving Anesthetic Complications: no major complications apparent and Pt Satisfied with anesthetic care
[2022-01-23] MEDS ORDERED: BENZOCAINE 20% AER SPR 82.5 GM CAN EXT PRN (02:45)
[2022-01-23] MEDS ORDERED: HYDROCORTISONE ACETATE 25 MG SUPP PR PRN (02:45)
[2022-01-23] MEDS ORDERED: SENNA 8.6 MG TAB PO PRN (02:45)
[2022-01-23] MEDS ORDERED: DIPHTHERIA/TETANUS/PERTUSSIS 0.5 ML SYR/VIAL IM ONE (02:45)
[2022-01-23] MEDS ORDERED: MAGNESIUM HYDROXIDE SUSP 30 ML UDC PO PRN (02:45)
[2022-01-23] MEDS ORDERED: MEASLES, MUMPS & RUBELLA VIRUS VIAL SQ ONE (02:45)
[2022-01-23] MEDS: KETOROLAC 30 MG/ML VIAL IV PRN ×2 (03:28→15:21)
[2022-01-23] MEDS: OXYTOCIN 20 UNITS in LACTATED RINGER'S 1,000 ML IV SCH ×2 (04:55→15:13)
--- NOTE | 2022-01-23 06:03 | Operative Report (OR) ---
DATE OF SURGERY: 01/23/2022. PREOPERATIVE DIAGNOSES: The patient is a 36-year-old G2, P-0-1-0 at 37 weeks and 2 days of gestation with IUGR, intolerance to labor, arrest of dilatation in active phase of labor. POSTOPERATIVE DIAGNOSES: The patient is a 36-year-old G2, P-0-1-0 at 37 weeks and 2 days of gestation with IUGR, intolerance to labor, arrest of dilatation in active phase of labor, and compound presentation. PROCEDURE: Primary low transverse with Pfannenstiel skin incision, and right ovarian cystectomy. SURGEON: Dipak Walker MD FURNACE CLEANER: Nicki Cuevas MD ESTIMATED BLOOD LOSS: 500 mL. DRAINS: Henning catheter drained 500 mL of clear urine. ANESTHESIA: Spinal. ANESTHESIOLOGIST: Dr. Sawant. COMPLICATIONS: None. FINDINGS: The baby was a viable female infant delivered at 1:18 a.m. in cephalic presentation. There was a hand and feet next to the head. Apgars were 9/9, weight was 2302 grams. Maternal findings, normal uterus, fallopian tubes, and left ovary. There was a 4 x 5 cm cyst on the right ovary, which has mucinous fluid in it and it was excised and ovary was primarily repaired. DETAILS OF SURGERY: The patient was taken to the operating room where epidural anesthesia was found to be adequate. She was placed in dorsal supine position with a leftward tilt. She was prepared and draped in the usual sterile fashion. A Pfannenstiel skin incision was made, carried through to the underlying layer of fascia with the Bovie. Fascia was incised in the midline and incision was extended laterally with the help of Gaines scissors. Upper aspect of the fascial incision was dissected off from the rectus fascia bluntly with fingers and sharply with Gaines scissors. The lower aspect of the fascial incision was again dissected from the muscles with Gaines scissors. Rectus muscles were in the midline. Peritoneum was entered bluntly. Peritoneal incision was extended superiorly and inferiorly with good visualization of the bladder. Bladder blade was inserted. Vesicouterine peritoneum was identified, grasped with pickups, and entered sharply with Metzenbaum scissors. Bladder flap was created digitally and bladder blade was reinserted. Lower uterine segment was incised in a transverse fashion. Incision was extended laterally with the help of Gaines scissors. We came across with the baby's head, hand and one foot and those were pushed back and the head was brought through the incision and delivered without difficulty. Shoulders were delivered with minimal traction and the baby's mouth and nose were suctioned. Cord was clamped x2 and cut. Baby was handed off to the waiting pediatric team and placenta was delivered manually as intact and complete. Uterus was exteriorized and cleared of all clots and debris. Uterine incision was repaired with 0 Vicryl in a running locked fashion. An imbricating layer was placed with another 0 Vicryl in a running locked fashion. There was oozing close to the lower side of the incision on the left side. It was controlled with quakyz-ci-kehaj stitches x2 and the incision was hemostatic. Cul-de-sac was irrigated with warm normal saline and suctioned. Left ovary and tube was found to be normal. Right tube was normal. The right ovary, however, was enlarged with about 4 x 5 cm cyst. Its wall had a smooth, benign surface. First, the cyst was drained and yellow mucous fluid was obtained. It was sent to the cytology. Then the ovarian cortex was incised with a scalpel. It was held with Dolores clamps and the cyst capsule was excised gently with the tip of Allis clamps, and the ovarian cyst was excised completely and sent to pathology. The ovarian bed was irrigated and the corners were coagulated and it was placed with Gillian powder for hemostasis. Then the ovarian capsule with stroma, incision was repaired with 3-0 Vicryl in a running fashion. There were oozings on the ovary and then ovary was also sutured with baseball stitch in 2 layers and excellent hemostasis was achieved. The uterus was returned to the abdomen. Pelvis was irrigated with warm normal saline and suctioned. Incision was checked to be hemostatic again and the ovary was checked to be hemostatic again. Parietal peritoneum was reapproximated with 0 Vicryl in a running fashion and the rectus muscles were reapproximated with the same suture in a running fashion. Excellent hemostasis was achieved. Rectus fascia was reapproximated with 0 Vicryl, subcuticular fat tissue was brought together with 3-0 Vicryl in a running fashion. The skin was closed with 4-0 Monocryl in a subcuticular fashion. The patient tolerated the procedure well. Sponge, lap, and needle count was correct x2. Mom and baby tolerated the procedure well. Mom was taken to recovery room in stable condition. She was given 2 grams of cefazolin before surgery and 500 mg of azithromycin during surgery. No complications happened. I was and Dr. Cuevas was present during whole procedure. My assistance was needed for retraction, visualization, hemostasis control, and aid in delivery of the infant. Job ID: [id number] [facility]
[2022-01-23] MEDS: miSOPROStoL 50 MCG TAB PO SCH (07:32)
[2022-01-23] MEDS: SIMETHICONE 80 MG CHEW PO SCH ×4 (09:53→20:30)
[2022-01-23] MEDS: PRENATAL VITAMIN 1 TAB PO SCH (09:53)
[2022-01-23] MEDS: FERROUS SULFATE 325 MG TAB PO SCH (09:53)
[2022-01-23] MEDS: DOCUSATE SODIUM 100 MG CAP PO SCH ×2 (09:53→20:30)
--- NOTE | 2022-01-23 10:30 | Obstetrical Progress Note ---
Date of Service January 23, 2022 Assessment & Plan (1) delivery delivered: POD #1 pt doing well continue day 1 care Results & Data ([facility]) Vital Signs (Past 12 Hours) Vital Signs Temp Pulse Pulse Resp BP Pulse Ox 01/23/22 09:29 18 99 01/23/22 09:28 49 L 98 01/23/22 09:23 50 L 98 01/23/22 09:18 62 98 01/23/22 09:13 50 L 98 01/23/22 09:09 50 L 131/76 01/23/22 09:08 51 L 98 01/23/22 09:03 52 L 96 01/23/22 08:58 53 L 98 01/23/22 08:53 53 L 97 01/23/22 08:48 62 98 01/23/22 08:43 78 96 01/23/22 08:38 54 L 97 01/23/22 08:34 53 L 117/63 01/23/22 08:33 57 L 98 01/23/22 08:30 20 99 01/23/22 08:28 62 96 01/23/22 08:23 59 L 96 01/23/22 08:18 64 98 01/23/22 08:13 69 99 01/23/22 08:08 70 97 01/23/22 08:06 92 H 94 01/23/22 08:03 68 96 01/23/22 07:58 50 L 98 01/23/22 07:53 63 97 01/23/22 07:48 48 L 97 01/23/22 07:43 52 L 98 01/23/22 07:38 51 L 97 01/23/22 07:33 51 L 98 01/23/22 07:30 20 98 01/23/22 07:28 54 L 97 01/23/22 07:23 60 97 01/23/22 07:18 51 L 98 01/23/22 07:13 69 98 01/23/22 07:09 57 L 120/77 01/23/22 07:08 48 L 97 01/23/22 07:03 65 97 01/23/22 06:58 51 L 96 01/23/22 06:53 51 L 95 01/23/22 06:51 51 L 94 01/23/22 06:48 53 L 94 01/23/22 06:46 51 L 94 01/23/22 06:43 51 L 95 01/23/22 06:40 52 L 94 01/23/22 06:38 53 L 95 01/23/22 06:33 50 L 95 01/23/22 06:28 52 L 95 01/23/22 06:27 54 L 94 01/23/22 06:23 53 L 96 01/23/22 06:22 53 L 94 01/23/22 06:18 53 L 95 01/23/22 06:13 55 L 95 01/23/22 06:10 16 95 01/23/22 06:09 51 L 119/59 L 01/23/22 06:08 55 L 96 01/23/22 06:03 57 L 96 01/23/22 05:58 55 L 96 01/23/22 05:53 57 L 96 01/23/22 05:48 56 L 95 01/23/22 05:46 56 L 94 01/23/22 05:43 54 L 95 01/23/22 05:38 54 L 95 01/23/22 05:33 56 L 96 01/23/22 05:28 60 97 01/23/22 05:23 65 96 01/23/22 05:18 70 95 01/23/22 05:13 75 96 01/23/22 05:10 36.5 C 88 18 96 01/23/22 05:08 62 96 01/23/22 05:06 61 139/65 01/23/22 05:03 77 95 01/23/22 05:00 75 93 01/23/22 04:57 59 L 95 01/23/22 04:52 66 96 01/23/22 04:50 69 118/58 L 94 01/23/22 04:47 60 96 01/23/22 04:42 59 L 95 01/23/22 04:37 60 96 01/23/22 04:35 63 117/57 L 01/23/22 04:32 62 96 01/23/22 04:27 63 96 01/23/22 04:22 68 96 01/23/22 04:20 61 122/58 L 01/23/22 04:17 64 96 01/23/22 04:12 71 95 01/23/22 04:07 64 96 01/23/22 04:05 61 125/64 01/23/22 04:02 61 95 04/09/22 03:57 58 L 96 01/23/22 03:52 61 96 01/23/22 03:50 59 L 124/74 01/23/22 03:47 59 L 95 01/23/22 03:42 61 96 01/23/22 03:37 62 96 01/23/22 03:35 64 127/66 01/23/22 03:32 62 96 01/23/22 03:27 58 L 97 01/23/22 03:22 63 97 01/23/22 03:19 56 L 130/66 01/23/22 03:17 63 97 01/23/22 03:12 57 L 97 01/23/22 03:09 65 130/63 01/23/22 03:07 75 98 01/23/22 03:02 60 98 01/23/22 03:00 63 133/65 01/23/22 02:57 69 98 01/23/22 02:53 67 119/71 01/23/22 02:52 71 99 01/23/22 02:47 79 99 01/23/22 02:42 72 99 01/23/22 02:41 83 94 01/23/22 02:40 67 126/82 01/23/22 02:37 71 98 01/23/22 02:32 87 99 01/23/22 02:30 68 126/92 01/23/22 02:27 79 98 01/23/22 02:25 36.5 C 68 16 01/23/22 02:24 141 H 114/78 01/23/22 02:22 78 99 01/23/22 00:56 74 99 01/23/22 00:51 59 L 98 01/23/22 00:46 63 98 01/23/22 00:41 62 98 01/23/22 00:36 66 99 01/23/22 00:31 67 99 01/23/22 00:30 70 139/80 01/23/22 00:26 73 97 01/23/22 00:21 62 98 01/23/22 00:16 78 99 01/23/22 00:11 58 L 98 01/23/22 00:06 72 99 01/23/22 00:01 71 121/75 96 01/22/22 23:56 50 L 97 01/22/22 23:51 54 L 98 01/22/22 23:46 82 100 01/22/22 23:41 53 L 98 01/22/22 23:36 57 L 98 01/22/22 23:31 58 L 98 01/22/22 23:29 52 L 120/64 01/22/22 23:28 36.7 C 16 01/22/22 23:26 53 L 97 01/22/22 23:21 51 L 97 01/22/22 23:16 53 L 97 01/22/22 23:11 54 L 98 01/22/22 23:08 49 L 106/57 L 01/22/22 23:06 50 L 96 01/22/22 23:01 50 L 97 01/22/22 22:56 48 L 98 01/22/22 22:51 56 L 97 01/22/22 22:49 52 L 116/58 L 01/22/22 22:46 54 L 97 01/22/22 22:41 60 98 01/22/22 22:36 55 L 98 01/22/22 22:31 59 L 100 01/22/22 22:29 49 L 124/76
[2022-01-23] MEDS ORDERED: PROMETHAZINE HCL 25 MG in SODIUM CHLORIDE 0.9% 50 ML IV PRN (19:28)
[2022-01-23] MEDS ORDERED: diphenhydrAMINE Capsule 25 MG CAP PO PRN (19:28)
[2022-01-23] MEDS ORDERED: MEPERIDINE HCL 50 MG/ML CARP IV PRN (19:28)
[2022-01-23] MEDS ORDERED: KETOROLAC 30 MG/ML VIAL IV PRN (19:28)
[2022-01-23] MEDS ORDERED: oxyCODONE/ACETAMINOPHEN 5mg/325mg TAB PO PRN (19:28)
[2022-01-24] MEDS: IBUPROFEN 600 MG TAB PO PRN ×4 (06:49→20:19)
[2022-01-24 07:05] LABS: Hematocrit (blood only) 29.8 % (37-47); Hemoglobin 10.3 g/dL (12.0-16.0); Mean Corpuscular Hemoglobin 32.3 pg (25-34); Mean Corpuscular Hgb Conc 34.6 g/dL (32-36); Mean Corpuscular Volume 93.4 fL (80-100); Mean Platelet Volume 10.5 fL (7.4-10.4); Platelet Count 152 K/uL (130-400); RDW Coefficient of Variation 13.1 % (11.5-14.5); RDW Standard Deviation 44.8 fL (36.4-46.3); Red Blood Count 3.19 M/uL (4.2-5.4); White Blood Count 14.26 K/uL (4.8-10.8)
[2022-01-24 07:29] LABS: Basophils # (auto) 0.02 K/uL (0-0.2); Basophils % (auto) 0.1 %; Eosinophils # (auto) 0.02 K/uL (0-0.5); Eosinophils % (auto) 0.1 %; Immature Granulocytes # (auto) 0.07 K/uL (0.00-0.02); Immature Granulocytes % (auto) 0.5 %; Lymphocytes # (auto) 1.49 K/uL (1.2-3.4); Lymphocytes % (auto) 10.4 %; Monocytes # (auto) 1.28 K/uL (0.11-0.59); Neutrophils # (auto) 11.38 K/uL (1.4-6.5); Neutrophils % (auto) 79.9 %
--- NOTE | 2022-01-24 08:29 | Obstetrical Progress Note ---
Date of Service January 24, 2022 Assessment & Plan (1) delivery delivered: POD #1 pt doing well No complaints continue day #1 care Subjective Ambulation: ambulating normally Voiding: no voiding problems Passing Gas:: Yes Diet Tolerance:: clear liquids Lochia:: Small Feeding Type:: breast feeding Review of Systems All systems reviewed & are unremarkable except as noted in HPI & below Physical Exam Constitutional WD/WN, vitals as above well developed and well nourished Eyes PERRL, conjunctivae normal, anicteric sclerae ENMT external ear and nose normal, oropharynx normal Neck trachea midline, no thyromegaly Respiratory normal respiratory effort, lungs clear to auscultation Cardiovascular RRR, no murmur, no edema Chest (Breasts) normal inspection/palpation of breasts Gastrointestinal (Abdomen) normal bowel sounds, soft, nontender, no hepatosplenomegaly Musculoskeletal no cyanosis or clubbing, extremities motor strength 5/5 Skin no rashes, warm and dry + incision (Clean,dry and intact) Neurologic patellar DTR's 2+ bilat, sensation intact Psychiatric A+Ox3, euthymic affect Genitourinary normal external appearance Lymphatic no cervical or axillary lymphadenopathy Results & Data ([facility]) Vital Signs (Past 12 Hours) Vital Signs Temp Pulse Resp BP Pulse Ox 01/24/22 00:00 37.1 C 58 L 20 130/81 96 01/23/22 20:30 18 96
[2022-01-24] MEDS: PRENATAL VITAMIN 1 TAB PO SCH (08:38)
[2022-01-24] MEDS: DOCUSATE SODIUM 100 MG CAP PO SCH ×2 (08:38→20:19)
[2022-01-24] MEDS: FERROUS SULFATE 325 MG TAB PO SCH (08:38)
[2022-01-24] MEDS: SIMETHICONE 80 MG CHEW PO SCH ×4 (08:39→20:19)
[2022-01-24] MEDS ORDERED: bisacodyL 5 MG TABEC PO SCH (20:00)
[2022-01-25] MEDS: IBUPROFEN 600 MG TAB PO PRN ×3 (01:22→10:48)
[2022-01-25] MEDS ORDERED: bisacodyL 10 MG SUPP PR PRN (02:45)
[2022-01-25 06:13] LABS: Hematocrit (blood only) 31.8 % (37-47); Hemoglobin 11.2 g/dL (12.0-16.0)
[2022-01-25 07:52] LABS: Hematocrit (blood only) 27.9 % (37-47); Hemoglobin 9.7 g/dL (12.0-16.0); Mean Corpuscular Hemoglobin 32.7 pg (25-34); Mean Corpuscular Hgb Conc 34.8 g/dL (32-36); Mean Corpuscular Volume 93.9 fL (80-100); Mean Platelet Volume 10.2 fL (7.4-10.4); Platelet Count 166 K/uL (130-400); RDW Coefficient of Variation 13.2 % (11.5-14.5); RDW Standard Deviation 45.8 fL (36.4-46.3); Red Blood Count 2.97 M/uL (4.2-5.4); White Blood Count 8.62 K/uL (4.8-10.8)
--- NOTE | 2022-01-25 08:05 | Obstetrical Progress Note ---
Date of Service January 25, 2022 Assessment & Plan Admission and Anticipated Discharge Date Admission Date: January 20, 2022 Subjective Patient is seen and examined. She feels well, no complaints. Desires d/c Pain is under control with oral meds. Ambulating without dizziness Voiding without difficulty Tolerating regular diet with out N&V Flatus + BM neg Bleeding is minimal No fever/ chills/ CP/ SOB/ N&V/ Leg pain Breast feeding without problems Vital Signs Temp Pulse Resp BP Pulse Ox 01/25/22 07:17 36.3 C L 61 18 123/82 99 01/24/22 23:25 36.7 C 64 16 135/78 99 01/24/22 15:45 36.6 C 57 L 16 120/76 100 01/24/22 08:30 36.7 C 53 L 18 144/84 H 99 Lab Results 01/20/22 01/21/22 01/22/22 Range/Units 23:02 07:53 08:04 WBC 14.45 H 13.39 H (4.8-10.8) K/uL RBC 4.00 L 3.82 L (4.2-5.4) M/uL Hgb 13.2 12.5 (12.0-16.0) g/dL Hct 36.5 L 35.1 L (37-47) % MCV 91.3 91.9 (80-100) fL MCH 33.0 32.7 (25-34) pg MCHC 36.2 H 35.6 (32-36) g/dL RDW Std Deviation 43.2 43.5 (36.4-46.3) fL RDW Coeff of Bi 12.9 12.9 (11.5-14.5) % Plt Count 200 183 (130-400) K/uL MPV 10.8 H 10.9 H (7.4-10.4) fL Immature Gran % (Auto) 0.6 % Neut % (Auto) 75.2 % Lymph % (Auto) 15.2 % [place] % (Auto) 8.2 % Eos % (Auto) 0.7 % Baso % (Auto) 0.1 % Neut # (Auto) 10.06 H (1.4-6.5) K/uL Lymph # (Auto) 2.03 (1.2-3.4) K/uL [place] # (Auto) 1.10 H (0.11-0.59) K/uL Eos # (Auto) 0.10 (0-0.5) K/uL Baso # (Auto) 0.02 (0-0.2) K/uL Immature Gran # (Auto) 0.08 H (0.00-0.02) K/uL SARS-CoV-2, RNA, NAAT NEGATIVE (NEGATIVE) 01/24/22 01/25/22 01/25/22 Range/Units 06:39 05:58 07:32 WBC 14.26 H 8.62 (4.8-10.8) K/uL RBC 3.19 L 2.97 L (4.2-5.4) M/uL Hgb 10.3 L 11.2 L 9.7 L (12.0-16.0) g/dL Hct 29.8 L 31.8 L 27.9 L (37-47) % MCV 93.4 93.9 (80-100) fL MCH 32.3 32.7 (25-34) pg MCHC 34.6 34.8 (32-36) g/dL RDW Std Deviation 44.8 45.8 (36.4-46.3) fL RDW Coeff of Bi 13.1 13.2 (11.5-14.5) % Plt Count 152 166 (130-400) K/uL MPV 10.5 H 10.2 (7.4-10.4) fL Immature Gran % (Auto) 0.5 % Neut % (Auto) 79.9 % Lymph % (Auto) 10.4 % [place] % (Auto) 9.0 % Eos % (Auto) 0.1 % Baso % (Auto) 0.1 % Neut # (Auto) 11.38 H (1.4-6.5) K/uL Lymph # (Auto) 1.49 (1.2-3.4) K/uL [place] # (Auto) 1.28 H (0.11-0.59) K/uL Eos # (Auto) 0.02 (0-0.5) K/uL Baso # (Auto) 0.02 (0-0.2) K/uL Immature Gran # (Auto) 0.07 H (0.00-0.02) K/uL SARS-CoV-2, RNA, NAAT (NEGATIVE) PE: General: Alert, orientedx3, NAD CVS: S1S2 RRR Lungs; CTAB Abd: soft, NT, ND, BS+, fundus firm, below Umbilicus Incision: Clean, dry, intact Perineum intact, Lochia rubra minimal Ext; NT, no edema AP: 36 yo s/p C Section, pod# 2 VSS Afebrile doing well Continue routine postop care Encourage ambulation, PO intake All questions were answered D/C home , f/u in office Results & Data ([facility]) Vital Signs (Past 12 Hours) Vital Signs Temp Pulse Resp BP Pulse Ox 01/25/22 07:17 36.3 C L 61 18 123/82 99 01/24/22 23:25 36.7 C 64 16 135/78 99
[2022-01-25 08:12] LABS: ALC (manual) 1.65 K/uL (1.2-3.4); ANC (manual) 6.53 K/uL (1.4-6.5); Lymphocytes # (manual) 1.65 K/uL (1.2-3.4); Lymphocytes % (manual) 19.1 %; Monocytes # (manual) 0.45 K/uL (0.11-0.59); Monocytes % (manual) 5.2 %; Neutrophils # (manual) 6.53 K/uL (1.4-6.5); Neutrophils % (manual) 75.7 %
[2022-01-25] MEDS ORDERED: ACETAMINOPHEN 325 MG TAB PO PRN (08:20)
[2022-01-25] MEDS: DOCUSATE SODIUM 100 MG CAP PO SCH (08:27)
[2022-01-25] MEDS: FERROUS SULFATE 325 MG TAB PO SCH (08:27)
[2022-01-25] MEDS: SIMETHICONE 80 MG CHEW PO SCH (08:27)
[2022-01-25] MEDS: PRENATAL VITAMIN 1 TAB PO SCH (08:27)
== END 2022-01-25 11:45 | disposition home or self-care (01) | DRG 788 ==
LOC: 4S1 21:51 → 4E1 01-23 09:35